=== PATIENT | female | born 1960 | race African-American/Black ===

== ENCOUNTER → 2017-05-10 | Day surgery (SDC) | payer OTHER ==
[~2017-05-10] MED LIST: AMLODIPINE BESY10 MG PO; ATORVASTATIN CA40 MG PO; CARVEDILOL25 MG PO; COREG12.5 MG PO; DIOVAN HCT 320/1 TAB PO; EXCEDRIN MIGRA1 EACH PO; HUMALOG KW200 UNIT/1 SUBQ; HUMALOG100 U/ML; JARDIANCE25 MG PO; LEVEMIR FL100 UNIT/1 SUBQ; LEVEMIR SQ; MOBIC15 MG PO; PRILOSEC PO; PRILOSEC20 MG PO; SIMVASTATIN40 MG PO; TRAMADOL HCL50 M1 PO; VALSARTAN-HCTZ1 EAC3 PO; VITAMIN D350000 UNIT PO
--- NOTE | ~2017-05-10 | OR ---
Unit #: [id number] #: [id number] Patient: RIGOBERTO HE [id number] [address] [place], [place] [address] [id number] O MR#: [id number] NAME: RIGOBERTO HE ROOM: Date of Procedure: 05/10/2017 Admission Date: 05/10/2017 Surgeon: Scotty Guerra M.D. : 1960 Attending Physician: Scotty Guerra M.D. Primary Care Physician: Cat Leonardo M.D. OPERATIVE REPORT JOB NOTE: CC: [facility] PREOPERATIVE DIAGNOSES Back pain, radiculopathy, post-laminectomy, degenerative disk disease. POSTOPERATIVE DIAGNOSES Back pain, radiculopathy, post-laminectomy, degenerative disk disease. PROCEDURE PERFORMED Lumbar epidural steroid injection with fluoroscopic guidance for needle localization. INDICATIONS FOR PROCEDURE The patient is a 56-year-old female with 2-month history of abrupt onset of significant left lower extremity radicular type pain and back pain. She is unclear of the initiating etiology for this trigger. She had back surgery in 1978 for left leg pain, which did very well at that point. She has settled mildly with conservative measures, but significant discomfort. Based on history, pathology, and symptomatology, plan is for trial of an epidural steroid injection. Risks and benefits of all have been reviewed. DESCRIPTION OF PROCEDURE The patient was placed in a seated position. Standard monitors were applied. Sterile prep and drape of the lumbar area was performed. The skin then at the L5-S1 level was localized with 1% lidocaine. An 18-gauge Blizuutead needle was then advanced via loss of resistance technique and fluoroscopic guidance in toward the epidural space. After confirming proper positioning with fluoroscopy and radiographic contrast, 80 mg of Depo-Medrol and 4 mL of 0.125% bupivacaine were deposited. The patient had some reproduction of her left leg pain during the injection phase, which quickly abated. She otherwise tolerated the procedure well and was discharged to the recovery room in stable condition. Dictated by... Scotty Guerra M.D. LHP/modl TD: 05/11/2017 01:21 Unit #: [id number] #: [id number] Patient: RIGOBERTO HE JOB #: [id number] OPERATIVE REPORT Page 1 of 1 X Scotty Guerra MD X PROCEDURE OPERATIVE NOTE
== END | disposition home or self-care (01) ==
LOC: CCSC 08:23
DX: M51.17 Intervertebral disc disorders with radiculopathy, lumbosacral region (principal); E11.9 Type 2 diabetes mellitus without complications; Z79.4 Long term (current) use of insulin; K21.9 Gastro-esophageal reflux disease without esophagitis; I10 Essential (primary) hypertension; Z98.890 Other specified postprocedural states
CPT/HCPCS: 82947; J1040; J2250

== ENCOUNTER → 2017-05-17 | Day surgery (SDC) | payer OTHER ==
--- NOTE | ~2017-05-17 | OR ---
Unit #: [id number] #: [id number] Patient: RIGOBERTO HE [id number] [address] [place], [place] [address] [id number] O MR#: [id number] NAME: RIGOBERTO HE ROOM: Date of Procedure: 05/17/2017 Admission Date: 05/17/2017 Surgeon: Scotty Guerra M.D. : 1960 Attending Physician: Scotty Guerra M.D. Referring Physician: Scotty Guerra M.D. Primary Care Physician: Cat Leonardo M.D. OPERATIVE REPORT PREOPERATIVE DIAGNOSES Back pain, radiculopathy, degenerative disk disease, postlaminectomy. POSTOPERATIVE DIAGNOSES Back pain, radiculopathy, degenerative disk disease, postlaminectomy. PROCEDURE PERFORMED Lumbar epidural steroid injection with fluoroscopic guidance for needle localization. INDICATIONS FOR PROCEDURE This is a 56-year-old female, who had an onset of fairly significant left lower extremity greater than low back pain. She is 30 year status post laminectomy which she did well. Workup demonstrated degenerative disk disease and facet disease. There was no new disk herniation. Decision was made to give a trial of epidural steroids if she gets partial improvement with oral steroids. First injection resulted in significant improvement in her back pain, less improvement in her leg pain improved. The patient has good partial response. We are going to proceed with a second injection today. DESCRIPTION OF PROCEDURE The patient was placed in a seated position. Standard monitors were applied. Sterile prep and drape of the lumbar area was performed. The skin then at the L4-5 level was localized with 1% lidocaine. An 18-gauge Fliqqtead needle was then advanced via loss of resistance technique and fluoroscopic guidance in toward the epidural space. After confirming proper needle tip positioning with fluoroscopy and radiographic contrast, 80 mg of Depo-Medrol and 4 mL of 0.125% bupivacaine were deposited. The patient tolerated the procedure otherwise well and was discharged to the recovery room in stable condition. Dictated by... Zamzam Smiley/jannie TD: 05/18/2017 08:00 JOB #: [id number] Unit #: [id number] #: [id number] Patient: GAVI NEWBERRYRIGOBERTO OPERATIVE REPORT Page 1 of 1 X Scotty Guerra MD X PROCEDURE OPERATIVE NOTE
== END | disposition home or self-care (01) ==
LOC: CCSC 10:01
DX: M51.16 Intervertebral disc disorders with radiculopathy, lumbar region (principal); M53.86 Other specified dorsopathies, lumbar region; E11.9 Type 2 diabetes mellitus without complications; I10 Essential (primary) hypertension; E66.01 Morbid (severe) obesity due to excess calories; K21.9 Gastro-esophageal reflux disease without esophagitis; Z88.1 Allergy status to other antibiotic agents; Z88.3 Allergy status to other anti-infective agents; Z79.4 Long term (current) use of insulin; Z79.891 Long term (current) use of opiate analgesic; Z79.899 Other long term (current) drug therapy; Z98.890 Other specified postprocedural states
CPT/HCPCS: J1040; J2250

== ENCOUNTER → 2017-05-31 | Day surgery (SDC) | payer OTHER ==
--- NOTE | ~2017-05-31 | OR ---
Unit #: [id number] #: [id number] Patient: RIGOBERTO HE [id number] [address] [place], [place] [address] [id number] O MR#: [id number] NAME: RIGOBERTO HE ROOM: Date of Procedure: 05/31/2017 Admission Date: 05/31/2017 Surgeon: Scotty Guerra M.D. : 1960 Attending Physician: Scotty Guerra M.D. Referring Physician: Scotty Guerra M.D. Primary Care Physician: Cat Leonardo M.D. OPERATIVE REPORT PREOPERATIVE DIAGNOSES Back pain, radiculopathy, degenerative lumbar disk disease, postlaminectomy syndrome. POSTOPERATIVE DIAGNOSES Back pain, radiculopathy, degenerative lumbar disk disease, postlaminectomy syndrome. PROCEDURE PERFORMED Lumbar epidural steroid injection with fluoroscopic guidance for needle localization. INDICATIONS FOR PROCEDURE The patient is a 56-year-old female, who presented with left lower extremity greater than low back pain, which came on abruptly and was quite severe. She has had back surgery about 30 years ago for leg pain and done well with that. Workup demonstrated degenerative disk disease and postsurgical changes with some left neuroforaminal stenosis. After failing conservative treatment, the decision was made to give her trial of epidural steroids. Two were done over the last month. They have resolved the back pain and significantly decreased left lower extremity pain. She still is having levels of discomfort higher than her baseline, so plan is to proceed with a final injection at this point. DESCRIPTION OF PROCEDURE The patient was placed in a seated position. Standard monitors were applied. Sterile prep and drape of the lumbar area was performed. The skin then at the L5 level was localized with 1% lidocaine. An 18-gauge [employer] needle was then advanced via loss of resistance technique and fluoroscopic guidance in toward the epidural space. After confirming proper positioning with fluoroscopy and radiographic contrast, a dose of 80 mg of Depo-Medrol and 4 mL of 0.125% bupivacaine were deposited. The patient tolerated the procedure otherwise well and was discharged to the recovery room in stable condition. Dictated by... Scotty Guerra M.D. LHP/jannie Unit #: [id number] #: [id number] Patient: RIGOBERTO HE TD: 05/31/2017 17:55 JOB #: [id number] OPERATIVE REPORT Page 1 of 1 X Scotty Guerra MD X PROCEDURE OPERATIVE NOTE
== END | disposition home or self-care (01) ==
LOC: CCSC 08:05
DX: M51.16 Intervertebral disc disorders with radiculopathy, lumbar region (principal); M96.1 Postlaminectomy syndrome, not elsewhere classified
CPT/HCPCS: J1040; J2250